=== PATIENT | male | born 1960 | race African-American/Black ===

== ENCOUNTER 2020-07-06 22:22 | Emergency (ER) | payer OTHER ==
[2020-07-06] MEDS ORDERED: HYDROMORPHONE HCL INJ/PF 2 MG/ML AMPULE IV ONE (22:29)
--- NOTE | 2020-07-06 22:31 | ER Document Report ---
ED Extremity Problem, Lower - General Chief Complaint: Leg Pain Stated Complaint: LEG PAIN/POSSIBLE BLOOD CLOTS Time Seen by Provider: 07/06/20 22:28 - HPI Notes: 59-year-old male with past medical history for peripheral vascular disease and history of leg bypass about 10 to 12 years ago to the emergency department via EMS with complaints of acute onset right leg pain that started about 1 hour ago. He states that he takes Plavix. He states he has had a history of clots in the past. He denies any nausea, vomiting, diarrhea, chest pain, shortness of breath. He does not currently have a vascular specialist. He did take his Plavix this morning. - Related Data Allergies/Adverse Reactions: aspirin Allergy (Verified 07/06/20 22:39) Past Medical History - General Information source: Patient, Relative - Social History Smoking Status: Former Smoker Frequency of alcohol use: None Drug Abuse: None Family History: Reviewed & Not Pertinent Review of Systems - Review of Systems Constitutional: denies: Chills, Fever EENT: No symptoms reported Cardiovascular: No symptoms reported. denies: Chest pain, Palpitations, Syncope, Dizziness, Lightheaded Respiratory: denies: Cough, Short of breath Gastrointestinal: denies: Abdominal pain, Diarrhea, Nausea, Vomiting Genitourinary: No symptoms reported Musculoskeletal: See HPI - Acute right lower extremity pain Skin: See HPI - Duskiness and coolness of the right lower extremity Hematologic/Lymphatic: See HPI Neurological/Psychological: No symptoms reported -: Yes All other systems reviewed and negative Physical Exam - Vital signs Vitals: Resp BP Pulse Ox 19 180/76 H 100 07/06/20 22:36 07/06/20 22:36 07/06/20 22:36 Interpretation: Hypertensive - Notes Notes: PHYSICAL EXAMINATION: GENERAL: Patient in severe pain distress. Writhing in bed. Stating that his right lower leg is very painful. HEAD: Atraumatic, normocephalic. EYES: Pupils equal round and reactive to light, extraocular movements intact, sclera anicteric, conjunctiva are normal. ENT: nares patent, oropharynx clear without exudates. Moist mucous membranes. NECK: Normal range of motion, supple without lymphadenopathy LUNGS: Breath sounds clear to auscultation bilaterally and equal. No wheezes rales or rhonchi. HEART: Regular rate and rhythm without murmurs ABDOMEN: Soft, nontender, normoactive bowel sounds. No guarding, no rebound. No masses appreciated. EXTREMITIES: Left lower leg is normal in color and he has good cap refill. Right lower extremity is cool to the touch and dusky in color. Unable to locate a pulse in the foot. He moves it at the level of the knee and tries to move the foot but it creates a lot of pain for him. NEUROLOGICAL: No focal neurological deficits. Moves all extremities spontaneously and on command. PSYCH: Normal mood, normal affect. SKIN: See extremities, dry, normal turgor, no rashes or lesions noted. Course - Re-evaluation Re-evalutation: 07/06/20 Discussed the patient with Dr. Jones, my ER attending. He underwent bedside. He also examined the patient and agrees with this is very concerning for acute arterial occlusion. We have gone ahead and ordered a heparin bolus plus i nfusion. We will call [facility] and arrange for transfer. Spoke with Dr. Barnett, vascular specialist on-call at [facility]. He accepts the patient to his service. The patient will be transferred to the emergency department via the flight crew. He agrees with the plan for heparin bolus plus infusion. He is aware that the patient had Plavix this morning. He is aware of patient's past medical history for peripheral vascular disease with bypass in this leg before. 11:10 PM Received a call from [facility] and flight crew will be here in 12 to 15 minutes. Updated the patient's . She is understanding of the situation although upset. She understands that the patient must be transferred to another facility as we do not have vascular specialty care. She understands that the patient will fly to [facility] and Dr. Barnett will be meeting the patient in the emergency department there. Patient has improvement of his pain after 1 mg of Dilaudid. Heparin boluses and and infusion started. - Vital Signs Vital signs: Temp Pulse Resp BP Pulse Ox 98.0 F 19 180/76 H 100 07/06/20 22:39 07/06/20 22:36 07/06/20 22:36 07/06/20 22:36 - Laboratory Result Diagrams: 07/06/20 22:30 07/06/20 22:30 Laboratory results interpreted by me: 07/06/20 22:30 WBC 11.7 H Lymph % (Auto) 46.3 H Absolute Lymphs (auto) 5.4 H Critical Care Note - Critical Care Note Total time excluding time spent on procedures (mins): 41 Comments: Time spent in consultation with the ER attending and vascular specialist from [facility]. Discharge - Discharge Clinical Impression: Acute occlusion of artery of lower extremity, Right leg pain Condition: Fair Disposition: [facility]
[2020-07-06] MEDS ORDERED: HEPARIN SOD (PORCINE) 1,000 UNIT/ML 10 ML VIAL IV ONE (22:39)
[2020-07-06] MEDS ORDERED: HEPARIN SODIUM,PORCINE/D5W 25,000 UNIT/250 ML RTUINJ IV PRN (22:55)
[2020-07-06 22:56] LABS: ABSOLUTE BASOPHILS # (AUTO) 0.1 10^3/uL (0.0-0.2); ABSOLUTE EOSINOPHILS # (AUTO) 0.2 10^3/uL (0.0-0.6); ABSOLUTE LYMPHOCYTES (AUTO) 5.4 10^3/uL (0.5-4.7); ABSOLUTE MONOCYTES (AUTO) 1.2 10^3/uL (0.1-1.4); ABSOLUTE NEUT (AUTO) 4.9 10^3/uL (1.7-8.2); BASOPHILS % (AUTO) 0.4 % (0-2); EOSINOPHILS % (AUTO) 1.4 % (0-6); HEMATOCRIT 42.5 % (37.9-51.0); HEMOGLOBIN 14.4 g/dL (13.5-17.0); LYMPHOCYTES % (AUTO) 46.3 % (13-45); MEAN CORPUSCULAR HGB CONC 33.8 g/dL (32.0-36.0); MEAN CORPUSCULAR VOLUME 95 fl (80-97); MONOCYTES % (AUTO) 9.9 % (3-13); PLATELET COUNT 214 10^3/uL (150-450); RED BLOOD COUNT 4.48 10^6/uL (4.35-5.55); RED CELL DISTRIBUTION WIDTH 12.7 % (11.5-14.0); TOTAL CELLS COUNTED % (AUTO) 100 %; WHITE BLOOD COUNT 11.7 10^3/uL (4.0-10.5)
[2020-07-06] MEDS ORDERED: HEPARIN SODIUM,PORCINE/D5W 25,000 UNIT/250 ML RTUINJ IV ONE (22:58)
[2020-07-06 23:05] LABS: INTERNATIONAL RATION (INR) 1.03; PARTIAL THROMBOPLASTIN TIME 26.8 SEC (23.5-35.8); PROTHROMBIN TIME 13.7 SEC (11.4-15.4)
[2020-07-06 23:23] VITALS: BP 191/74
[2020-07-06 23:28] LABS: ALBUMIN 4.2 g/dL (3.5-5.0); ALKALINE PHOSPHATASE 71 U/L (38-126); ANION GAP 8 (5-19); ASPARTATE AMINO TRANSFERASE 20 U/L (17-59); BILIRUBIN,DIRECT 0.1 mg/dL (0.0-0.4); BILIRUBIN,TOTAL 0.4 mg/dL (0.2-1.3); BLOOD UREA NITROGEN 13 mg/dL (7-20); CARBON DIOXIDE 24 mmol/L (22-30); CHLORIDE 105 mmol/L (98-107); GLUCOSE 141 mg/dL (75-110); POTASSIUM 3.8 mmol/L (3.6-5.0)
[2020-07-07] MEDS ORDERED: HEPARIN SOD (PORCINE) 1,000 UNIT/ML 10 ML VIAL IV PRN (01:40)
== END 2020-07-06 23:26 | disposition short-term general hospital (02) ==
LOC: ER 22:22
DX: I70.201 Unspecified atherosclerosis of native arteries of extremities, right leg (principal); M79.604 Pain in right leg; Z79.02 Long term (current) use of antithrombotics/antiplatelets; Z86.718 Personal history of other venous thrombosis and embolism; Z88.8 Allergy status to other drugs, medicaments and biological substances
CPT/HCPCS: 99285; 96375; 96365; 36415; 85025; 85610; 85730; 80053; J1644 ×2; J1170